=== PATIENT | male | born 1975 ===

== ENCOUNTER 2018-04-04 21:22 | Emergency (ER) | payer OTHER ==
[2018-04-04 21:27] VITALS: RESP 16
[2018-04-04] MEDS ORDERED: Sodium Chloride 0.9% 1,000 ML IV STA (22:42)
[2018-04-04 23:22] LABS: BASO % 0.4 % (0.0-2.0); EOS # 0.2 K/uL (0.0-0.7); EOS % 2.2 % (0.0-4.0); HEMOGLOBIN 13.6 g/dL (12.0-18.0); LYMPH # 2.1 K/uL (1.0-4.3); LYMPH % 20.4 % (20.0-40.0); MEAN CELL VOLUME 86.2 fl (80.0-94.0); MEAN CORPUSCULAR HGB CONC 34.8 g/dL (33.0-37.0); MONO # 0.8 K/uL (0.0-0.8); MONO % 8.2 % (0.0-10.0); NEUT # 7.1 K/uL (1.8-7.0); NEUT % 68.8 % (50.0-75.0); NRBC % 0.1 % (0.0-0.0); RBC 4.54 Mil/uL (4.40-5.90); RED CELL DISTRIBUTION WIDTH 13.4 % (11.5-14.5); WHITE BLOOD COUNT 10.3 K/uL (4.8-10.8)
[2018-04-04 23:25] LABS: URINE BILIRUBIN NEGATIVE (NEGATIVE); URINE BLOOD MODERATE (NEGATIVE); URINE CLARITY TURBID (Clear); URINE COLOR RED (YELLOW); URINE GLUCOSE (UA) NEG (Normal); URINE LEUKOCYTE ESTERASE NEG Leu/uL (Negative); URINE PROTEIN 100 mg/dL (NEGATIVE); URINE UROBILINOGEN 0.2-1.0 mg/dL (0.2-1.0)
--- NOTE | 2018-04-04 23:27 | ED PDOC ---
HPI: General Adult Time Seen by Provider: 04/04/18 21:38 Chief Complaint (Nursing): Trauma History Per: Patient, [employer] Worker (Sur[place]amese [id number]) Additional Complaint(s): Pt. states earlier this afternoon he was playing soccer when he was accidentally kicked on the L side of his flank. States approximately 3 hours after the injury he noticed blood in his urine. Denies hx of kidney stones, dysuria, N/V, previous abdominal surgeries, other injury. Past Medical History Reviewed: Historical Data, Nursing Documentation, Vital Signs Vital Signs: Last Vital Signs Temp 99.3 F 04/04/18 21:25 Pulse 78 04/04/18 21:25 Resp 16 04/04/18 21:25 BP 123/69 04/04/18 21:25 Pulse Ox 97 04/04/18 23:28 - Medical History PMH: Denies: Chronic Kidney Disease - Family History Family History: States: No Known Family Hx - Home Medications Home Medications: Ambulatory Orders Medication Instructions Recorded Cefuroxime Axetil [Cefuroxime] 500 mg PO BID #14 tablet 04/05/18 - Allergies Allergies/Adverse Reactions: Allergies Allergy/AdvReac Type Severity Reaction Status Date / Time No Known Allergies Allergy Verified 04/04/18 21:28 Review of Systems ROS Statement: Except As Marked, All Systems Reviewed And Found Negative Genitourinary Male: Positive for: Hematuria Musculoskeletal: Positive for: Back Pain Physical Exam - Physical Exam Appears: Positive for: Well, Non-toxic, No Acute Distress Head Exam: Positive for: ATRAUMATIC, NORMAL INSPECTION, NORMOCEPHALIC Skin: Positive for: Normal Color, Warm. Negative for: Rash Eye Exam: Positive for: Normal appearance Neck: Positive for: Normal, Painless ROM Cardiovascular/Chest: Positive for: Regular Rate, Rhythm, Chest Non Tender Respiratory: Positive for: Normal Breath Sounds. Negative for: Respiratory Distress Gastrointestinal/Abdominal: Positive for: Normal Exam, Bowel Sounds, Soft, Other (no ecchymosis). Negative for: Tenderness Back: Positive for: Normal Inspection (no ecchymosis). Negative for: L CVA Tenderness, R CVA Tenderness, Vertebral Tenderness Neurologic/Psych: Positive for: Alert, Oriented - Laboratory Results Result Diagrams: 04/04/18 22:50 04/04/18 22:50 - ECG O2 Sat by Pulse Oximetry: 97 - Progress ED Course And Treament: Labs, CT abd/pelvis w/ IV contrast, IV NS bolus x [address] abd/pelvis: 1. There is a 1 cm hypodensity in the medial left renal cortex, which is too small to fully characterize. This may be a small cyst, a neoplasm, or a small laceration (most likely). Recommend follow up. 2. There is a thin rim of soft tissue density along the medial and posterior left renal margin, probably a small amount of perinephric/subcapsular hematoma. 3. There is left perinephric and periureteral fat stranding, probably secondary to contusion. Case and diagnostic results discussed in detail with Dr. Delgado, urology vascular sonographer, who states pt. can be discharged with Rx for Ceftin and a dose of rocephin to be given in ED. Also states pt. can f/u in his office this week. Discussed need for admission or observation but as per Dr. Delgado pt. does not require it. Case d/w Dr. Lind who agrees with care and disposition. Results and plan d/w patient in detail using sheet heater helper #[id number]. Pt. agrees with plan and care. Denies anticoagulant use. Pt. in no distress. Resting comfortably on stretcher. Also states that blood is decreasing in amount. Advised to call Dr. Delgado tomorrow morning to set up appointment. Also told to take only Tylenol for pain. Also told to return to ED immediately if pain or bleeding worsens. Rocephin 1gm IV ordered. Disposition - Clinical Impression Clinical Impression: Renal injury, closed - Patient ED Disposition Is Patient to be Admitted: No - Disposition Referrals: [facility] [Outside] Manfred Delgado MD [Staff Provider] - Disposition: Routine/Home Disposition Time: 00:55 Condition: IMPROVED Additional Instructions: DELANEY WEBSTER, thank you for letting us take care of you today. Your provider was Madhu Lind MD and you were treated for ABD INJURY/BLOOD IN STOOL. The emergency medical care you received today was directed at your acute symptoms. If you were prescribed any medication, please fill it and take as directed. It may take several days for your symptoms to resolve. Return to the Emergency Department if your symptoms worsen, do not improve, or if you have any other problems. Please contact your doctor or call one of the physicians/clinics you have been referred to that are listed on the Patient Visit Information form that is included in your discharge packet. Bring any paperwork you were given at discharge with you along with any medications you are taking to your follow up visit. Our treatment cannot replace ongoing medical care by a primary care provider outside of the emergency department. Thank you for allowing the [facility] team to be part of your care today. If you had an X-Ray or CT scan: A Radiologist will review the ED reading if any change in treatment is needed we will contact you. If you had a blood, urine, or wound culture: It will take several days for the results, if any change in treatment is needed we will contact you. If you had an STI test: It will take 48 hours for the results. Please call after 1 week if you have not heard back. Prescriptions: Cefuroxime Axetil [Cefuroxime] 500 mg PO BID #14 tablet Instructions: Contusion (DC), Blood in the Urine (Hematuria), Adult (DC) Forms: [employer] (Surinamese) Print Language: TURKMEN
[2018-04-04 23:29] LABS: ALB/GLOB RATIO 1.2 (1.0-2.1); ALBUMIN 4.1 g/dL (3.5-5.0); ALT/SGPT 37 U/L (21-72); AST/SGOT 35 U/L (17-59); BLOOD UREA NITROGEN 15 mg/dl (9-20); CALCIUM 8.8 mg/dL (8.4-10.2); GFR AFRICAN-AMERICAN > 60; GFR NON-AFRICAN AMERICAN > 60
[2018-04-04] MEDS ORDERED: Iohexol 300 50 ML ONE (23:39)
[2018-04-04] MEDS ORDERED: Sodium Chloride 0.9% 50 ML IV ONE (23:40)
[2018-04-04 23:56] LABS: INR 1.1 (0.9-1.2); PARTIAL THROMBOPLASTIN TIME 29.3 Seconds (25.6-37.1)
[2018-04-05] MEDS ORDERED: cefTRIAXone (Rocephin) 1 gm Inj ONE (01:14)
[2018-04-05 02:39] VITALS: BP 115/65; PULSE 59; TEMP 98.3; O2SAT 99
--- NOTE | 2018-04-05 11:36 | CT ---
Date of service: 04/04/2018 PROCEDURE: CT Abdomen and Pelvis with contrast HISTORY: Posttraumatic left flank pain and hematuria COMPARISON: None. TECHNIQUE: Contrast dose: 95 cc Omnipaque 300. Radiation dose: Total exam DLP = 395.25 mGy-cm. This CT exam was performed using one or more of the following dose reduction techniques: Automated exposure control, adjustment of the mA and/or kV according to patient size, and/or use of iterative reconstruction technique. FINDINGS: LOWER THORAX: Unremarkable. LIVER: Unremarkable. No gross lesion or ductal dilatation. GALLBLADDER AND BILE DUCTS: Unremarkable. PANCREAS: Unremarkable. No gross lesion or ductal dilatation. SPLEEN: Unremarkable. ADRENALS: Unremarkable. No mass. KIDNEYS AND URETERS: Right kidney: Solitary 4 mm calculus. No hydronephrosis. No solid mass. Left kidney: Edematous left kidney with perinephric stranding and inflammatory changes. The findings are consistent with stated clinical history trauma. Incidental finding(s): Midpole calculus 5 mm. VASCULATURE: Unremarkable. No aortic aneurysm. BOWEL: Unremarkable. No obstruction. No gross mural thickening. APPENDIX: Normal appendix. PERITONEUM: Unremarkable. No free fluid. No free air. LYMPH NODES: Unremarkable. No enlarged lymph nodes. BLADDER: Unremarkable. REPRODUCTIVE: Unremarkable. BONES: No acute fracture. OTHER FINDINGS: None. IMPRESSION: Edematous left kidney with perinephric stranding and fluid. There is no evidence of infarction of the left kidney. Incidental finding(s): Bilateral nonobstructing calculi none larger than 4 mm. Concordant results (preliminary interpretation) provided by [facility]. Procedure Completed: 23:50 Preliminary ([facility]) Report: Dictated and Authenticated: 00:49. Final Interpretation: 11:34. April 05, 2018.
== END 2018-04-05 02:30 | disposition home or self-care (01) ==
LOC: H.ER 21:22
DX: S37.002A Unspecified injury of left kidney, initial encounter (principal); W50.0XXA Accidental hit or strike by another person, initial encounter; Y93.66 Activity, soccer
CPT/HCPCS: 74177; 80053; 81003; 85025; 85610; 85730; 86850; 86900; 87086; 96365; 99285; J0696; J7030; Q9967